=== PATIENT | male | born 1960 | race African-American/Black ===

== ENCOUNTER 2022-12-24 13:38 | Emergency (ER) | payer BC, MEDICAID ==
[~2022-12-24] VITALS: Ht 170.2 cm; Wt 87.0 kg
[2022-12-24 13:50] VITALS: TEMP 98.2; O2SAT 100
[2022-12-24 14:15] LABS: BASOPHILS % 0.9 % (0.0-2.0); HEMATOCRIT. 38.7 % (42.0-52.0); HEMOGLOBIN. 13.4 g/dL (14.0-18.0); LYMPHOCYTES % 49.7 % (20.0-50.0); MEAN CORPUSCULAR VOLUME 92.6 fL (80.0-94.0); MEAN PLATELET VOLUME 8.4 fl (7.4-10.4); MONOCYTES % 6.8 % (2.0-8.0); NEUTROPHILS % 38.6 % (40.0-76.0); PLATELET 197 x1000/uL (130-400); RED BLOOD CELL COUNT 4.18 mill/uL (4.7-6.1); RED CELL DISTRIBUTION WIDTH 13.3 % (11.6-14.6)
[2022-12-24 14:23] LABS: CHLORIDE 115 mEq/L (98-107)
[2022-12-24 17:27] VITALS: BP 120/88; PULSE 59; RESP 13
== END 2022-12-24 17:38 | disposition home or self-care (01) ==
LOC: ER 13:47
DX: R07.89 Other chest pain (principal); R00.2 Palpitations; I10 Essential (primary) hypertension
CPT/HCPCS: 36415; 71045; 80053; 84443; 84484; 85025; 93005; 99285